=== PATIENT | male | born 1990 | race Caucasian/White ===

== ENCOUNTER → 2020-11-15 | Outpatient (CLI) | payer OTHER ==
[~2020-11-15] MED LIST: FELDENE10 MG PO; IBUPROFEN600 MG PO; KEFLEX CAP 500500 MG PO; PERCOGESIC 3251 EACH PO; PREDNISONE 50 M50 MG PO; Voltaren Gel 1 % TOP; Voltaren Gel 1% TOP
[2020-11-15 11:49] LABS: HEMOGLOBIN 17.1 gm/dl (14.0-17.5); RED BLOOD COUNT 5.37 M/UL (4.20-5.50); WHITE BLOOD COUNT 5.5 K/UL (4.5-11.0)
[2020-11-15 13:20] LABS: BUN/CREATININE RATIO 15 (0-10)
[2020-11-16 09:14] LABS: VITAMIN D, 25-HYDROXY 13.1 ng/mL (30.0-100.0)
[2020-11-16 11:14] LABS: THYROXINE (T4) 7.9 ug/dL (4.5-12.0)
== END ==
LOC: LAB 11:20
PROVIDERS: Nurse Practitioner Family
DX: Z13.220 Encounter for screening for lipoid disorders (principal); F31.9 Bipolar disorder, unspecified; E78.5 Hyperlipidemia, unspecified; F41.9 Anxiety disorder, unspecified; R53.83 Other fatigue; E55.9 Vitamin D deficiency, unspecified
CPT/HCPCS: 36415; 80053; 80061; 84436; 84443; 84480; 85025

== ENCOUNTER → 2022-06-09 | Outpatient (CLI) | payer OTHER ==
[2022-06-09 08:57] LABS: HEMOGLOBIN 17.7 gm/dl (14.0-17.5); RED BLOOD COUNT 5.39 M/UL (4.20-5.50); WHITE BLOOD COUNT 5.5 K/UL (4.5-11.0)
[2022-06-09 09:19] LABS: BUN/CREATININE RATIO 16 (0-10)
== END ==
LOC: LAB 08:08
PROVIDERS: Nurse Practitioner Family
DX: F41.9 Anxiety disorder, unspecified (principal); F33.1 Major depressive disorder, recurrent, moderate; Z13.1 Encounter for screening for diabetes mellitus; Z13.220 Encounter for screening for lipoid disorders; E55.9 Vitamin D deficiency, unspecified
CPT/HCPCS: 80053; 80061; 81001; 83036; 84443; 85025